=== PATIENT | female | born 1935 | race Asian ===

== ENCOUNTER 2017-11-13 12:12 | Emergency (ER) | payer MEDICARE ==
[~2017-11-13] VITALS: Ht 152.4 cm; Wt 49.9 kg
--- NOTE | 2017-11-13 12:17 | NUR ---
Patient receiced with hard C-collar in place. ED MD notified.
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
[2017-11-13] MEDS ORDERED: ACETAMINOPHEN ES 500 MG TABLET ONE (12:43)
[2017-11-13] MEDS ORDERED: ACETAMINOPHEN ES 500 MG TABLET PO ONE (13:00)
--- NOTE | 2017-11-13 14:12 | NUR ---
Patient discharged to home in stable condition. Written and verbal after care instructions given. Patient verbalizes understanding of instruction.
[2017-11-13 14:13] VITALS: BP 130/80
--- NOTE | 2017-11-13 14:14 | NUR ---
Patient discharged to home in stable condition. Written and verbal after care instructions given. Patient verbalizes understanding of instruction.
== END 2017-11-13 14:24 | disposition home or self-care (01) ==
LOC: ER 12:14
DX: S20.211A Contusion of right front wall of thorax, initial encounter (principal); I10 Essential (primary) hypertension; Z88.8 Allergy status to other drugs, medicaments and biological substances; V43.63XA Car passenger injured in collision with pick-up truck in traffic accident, initial encounter; Y93.89 Activity, other specified; Y92.413 State road as the place of occurrence of the external cause; Y99.8 Other external cause status
CPT/HCPCS: 72125; 99284; A4606; Z7610